=== PATIENT | male | born 1955 | race Caucasian/White ===

== ENCOUNTER 2020-06-22 07:30 | Observation (INO) ==
[~2020-06-22 07:30] MED LIST: Buffered Lidocaine 1% SYRIN 1 ml INTRADERM ONE; Dexamethasone IV 4 MG/ML VIAL 1 ml VIAL IV SLOW PU ONE; Lactated Ringers 1000 ml BAG 1,000 ML IV SCH
[2020-06-22] MEDS ORDERED: Lidocaine 2% PF 5 ML VIAL ONE (11:54)
[2020-06-22] MEDS ORDERED: fentaNYL 100 mcg/2 ml 50 MCG/ML VIAL ONE ×2 (11:54→16:28)
[2020-06-22] MEDS ORDERED: Propofol 10 MG/ML 20 ML BTL ONE (11:54)
[2020-06-22] MEDS ORDERED: Midazolam 2 mg/2 ml VIAL 1 mg/ml 2 ml VIAL (2 mg) ONE (11:54)
[2020-06-22] MEDS ORDERED: Dexamethasone IV 4 MG/ML VIAL 1 ml VIAL ONE ×2 (11:54→13:20)
[2020-06-22] MEDS ORDERED: Ondansetron 4 mg VIAL 2 MG/ML 2 ml VIAL ONE (11:54)
[2020-06-22] MEDS ORDERED: Bupivacaine 0.5% SDV PF 30ML VIAL ONE (13:01)
[2020-06-22] MEDS ORDERED: ceFAZolin 2 GM PREMIX 2 GM/50 ML BAG ONE (13:27)
[2020-06-22] MEDS ORDERED: ROPIVACAINE 5 MG/ML 30 ML BTL (0.5%) ONE (13:33)
[2020-06-22] MEDS ORDERED: Rocuronium 50 mg VIAL 10 mg/ml 5 ml VIAL (50 mg) ONE (13:44)
[2020-06-22] MEDS ORDERED: EPHEDrine (Pressors) 50 MG/ML VIAL ONE (14:18)
[2020-06-22] MEDS ORDERED: HYDROmorphone 1 MG/1 ML SYRINGE ONE ×3 (14:21→16:13)
[2020-06-22] MEDS ORDERED: diPHENhydraMINE IV 50 MG/ML 1 ml VIAL (BENADRYL) IV PRN (15:15)
[2020-06-22] MEDS ORDERED: Ondansetron ODT 4 mg TAB 4 MG TAB PO PRN (15:15)
[2020-06-22] MEDS ORDERED: oxyCODONE/Acetamin 5/325 mg TAB PO PRN (15:15)
[2020-06-22] MEDS ORDERED: Magnesium Hydroxide LIQ 30 ML UDC PO PRN (15:15)
[2020-06-22] MEDS ORDERED: diPHENhydraMINE 25 mg TAB PO PRN (15:15)
[2020-06-22] MEDS ORDERED: Ondansetron 4 mg VIAL 2 MG/ML 2 ml VIAL IV PRN ×2 (15:15→16:02)
[2020-06-22] MEDS ORDERED: Morphine 2 MG/ML SYRINGE IV PRN (15:15)
[2020-06-22] MEDS ORDERED: Lactulose 30 ml UDC PO PRN (15:15)
[2020-06-22] MEDS ORDERED: NICOTINE INH PRN (15:24)
[2020-06-22] MEDS ORDERED: Lactated Ringers 1000 ml BAG 1,000 ML IV SCH (16:00)
[2020-06-22] MEDS ORDERED: ceFAZolin 1 GM ADVAN 1 GM in NS 0.9% 50 ML 50 ML IVPB SCH (16:00)
[2020-06-22] MEDS ORDERED: Naloxone 0.4 mg VIAL 0.4 mg/ml 1 ml VIAL IV PRN (16:02)
[2020-06-22] MEDS: HYDROmorphone 1 MG/1 ML SYRINGE IV PRN ×2 (16:16→16:27)
[2020-06-22] MEDS ORDERED: oxyCODONE/Acetamin 5/325 mg TAB ONE (16:28)
[2020-06-22] MEDS: fentaNYL 100 mcg/2 ml 50 MCG/ML VIAL IV PRN ×2 (16:37→16:48)
[2020-06-22] MEDS ORDERED: PITAVASTATIN 4 MG PO SCH (21:00)
[2020-06-22] MEDS: oxyCODONE/Acetamin 5/325 mg TAB PO PRN (21:55)
[2020-06-22] MEDS: Magnesium Hydroxide LIQ 30 ML UDC PO SCH (21:56)
[2020-06-22] MEDS: ceFAZolin 1 GM ADVAN 1 GM in NS 0.9% 50 ML 50 ML IVPB SCH (21:59)
[2020-06-23] MEDS: ceFAZolin 1 GM ADVAN 1 GM in NS 0.9% 50 ML 50 ML IVPB SCH ×2 (06:04→13:27)
[2020-06-23 06:09] LABS: Hematocrit 33 % (42-52); Hemoglobin 10.8 g/dL (14.0-18.0); Mean Platelet Volume 7.6 fL (7.4-10.4); Platelet Count 177 10^3/uL (150-450)
[2020-06-23 06:31] LABS: BUN/Creatinine Ratio 17.8 (8-20); Calcium 8.8 mg/dL (8.6-10.3); EGFR African American 102.5 (>60); EGFR Non-African American 84.7 (>60); Potassium 4.1 mmol/L (3.5-5.0)
[2020-06-23] MEDS ORDERED: Vitamin THERAPEUTIC TAB PO SCH (09:00)
[2020-06-23] MEDS: Magnesium Hydroxide LIQ 30 ML UDC PO SCH (09:17)
[2020-06-23] MEDS: oxyCODONE/Acetamin 5/325 mg TAB PO PRN ×2 (10:13→13:52)
[2020-06-23 11:19] VITALS: BP 103/55
== END 2020-06-23 14:05 | disposition home or self-care (01) ==
LOC: INTOOBSV 12:43 → AA 12:43 → SSU 18:03
PROVIDERS: ADMIT Orthopaedic Surgery Adult Reconstructive Orthopaedic Surgery; ATTEND Orthopaedic Surgery Adult Reconstructive Orthopaedic Surgery

== ENCOUNTER 2020-11-13 06:59 | Inpatient (IN) ==
[2020-11-13] MEDS ORDERED: methylPREDNISolone 125 mg 2 ML VIAL IV ONE (07:35)
[2020-11-13 08:35] LABS: ABS Eosinophils 0.1 10^3/ul (0-0.6); ABS Monocytes 1.2 10^3/ul (0-0.8); ABS Neutrophils 11.5 10^3/ul (1.5-7.7); Eosinophil % 0.8 %; Hematocrit 40 % (42-52); Hemoglobin 13.5 g/dL (14.0-18.0); Lymphocyte % 7.4 %; Mean Corpuscular HGB Conc 34 g/dL (31-36); Mean Corpuscular Hemoglobin 30 pg (27-31); Mean Corpuscular Volume 88 fL (80-94); Mean Platelet Volume 8.1 fL (7.4-10.4); Platelet Count 198 10^3/uL (150-450); Red Blood Count 4.57 10^6 /uL (4.18-5.48); Red Cell Distribution Width 14 % (10-15); White Blood Count 13.8 10^3/uL (3.5-10.8)
[2020-11-13 08:56] LABS: Albumin 3.8 g/dL (3.2-5.2); Calcium 8.8 mg/dL (8.6-10.3); Total Bilirubin 0.5 mg/dL (0.2-1.0)
[2020-11-13 09:02] LABS: Albumin/Globulin Ratio 1.5 (1-3); BUN/Creatinine Ratio 17.7 (8-20); EGFR African American 119.1 (>60); EGFR Non-African American 98.4 (>60); Globulin 2.5 g/dL (2-4); Total Protein 6.3 g/dL (6.4-8.9)
[2020-11-13] MEDS ORDERED: NS 0.9% 1000 ml BAG 1,000 ML IV ONE (09:18)
[2020-11-13 09:23] LABS: Rapid Strep Molecular Negative (Negative)
[2020-11-13] MEDS ORDERED: Iohexol 300 (CONTRAST) 10 ML SDV IV ONE (09:28)
[2020-11-13] MEDS ORDERED: Piperacillin/Tazobac ADVAN 3.375 GM in NS 0.9% 100 ml BAG 100 ML IV ONE (10:37)
[2020-11-13] MEDS ORDERED: Ondansetron 4 mg VIAL 2 MG/ML 2 ml VIAL IV PRN (11:26)
[2020-11-13] MEDS ORDERED: Morphine 4 MG/ML VIAL (1 ml) IV PRN (11:28)
[2020-11-13] MEDS ORDERED: Zosyn per Pharmacy NOTE FOLLOW UP SCH (12:00)
[2020-11-13 14:29] LABS: TSH Ultra Thyroid Stim Horm 1.96 mcIU/mL (0.34-5.60)
[2020-11-13] MEDS: NS 0.9% 1000 ml BAG 1,000 ML IV SCH (14:30)
[2020-11-13] MEDS: ZOSYN 3.375 GM Q8H per EXTENDED INFUSION IV SCH (16:30)
[2020-11-13] MEDS: Dexamethasone IV 4 MG/ML VIAL 1 ml VIAL IV SLOW PU SCH (18:03)
[2020-11-14] MEDS: NS 0.9% 1000 ml BAG 1,000 ML IV SCH (00:29)
[2020-11-14] MEDS: Dexamethasone IV 4 MG/ML VIAL 1 ml VIAL IV SLOW PU SCH ×4 (00:31→17:53)
[2020-11-14] MEDS: ZOSYN 3.375 GM Q8H per EXTENDED INFUSION IV SCH ×3 (00:32→16:26)
[2020-11-14] MEDS ORDERED: Influenza VAC *QUAD* 2020-21* 0.5 ML SYRINGE IM ONE (09:00)
[2020-11-14] MEDS: Metoprolol Tartrate 5 mg VIAL 5 ml VIAL (1 mg/ml) IV SCH ×2 (11:46→15:26)
[2020-11-14] MEDS ORDERED: Lidocaine 4% TOPICAL 50 ML TOP.SOLN ONE (12:06)
[2020-11-14] MEDS ORDERED: Oxymetazoline 0.05% NASAL SPR 15 ML BTL ONE (12:06)
[2020-11-14] MEDS ORDERED: fentaNYL 100 mcg/2 ml 50 MCG/ML VIAL ONE ×3 (12:19→14:42)
[2020-11-14] MEDS ORDERED: Dexamethasone IV 4 MG/ML VIAL 1 ml VIAL ONE (12:19)
[2020-11-14] MEDS ORDERED: Ondansetron 4 mg VIAL 2 MG/ML 2 ml VIAL ONE ×2 (12:19→13:36)
[2020-11-14] MEDS ORDERED: Midazolam 5 mg/5 ml VIAL 1 mg/ml 5 ml VIAL (5 mg) ONE (12:19)
[2020-11-14] MEDS ORDERED: Lidocaine 2% PF 5 ML VIAL ONE ×2 (12:19→13:11)
[2020-11-14] MEDS ORDERED: Propofol 10 MG/ML 20 ML BTL ONE ×3 (12:19→13:11)
[2020-11-14] MEDS ORDERED: Succinylcholine 200 mg VIAL 20 mg/ml 10 ml VIAL (200 mg) ONE ×2 (12:19→13:11)
[2020-11-14] MEDS ORDERED: Famotidine IV 10 MG/ML 2 ml VIAL (20 mg) IV ONE (12:25)
[2020-11-14] MEDS ORDERED: Famotidine IV 10 MG/ML 2 ml VIAL (20 mg) ONE (12:28)
[2020-11-14] MEDS ORDERED: Lactated Ringers 1000 ml BAG 1,000 ML IV SCH (13:00)
[2020-11-14] MEDS ORDERED: Midazolam 2 mg/2 ml VIAL 1 mg/ml 2 ml VIAL (2 mg) ONE (13:12)
[2020-11-14] MEDS ORDERED: Rocuronium 50 mg VIAL 10 mg/ml 5 ml VIAL (50 mg) ONE (13:28)
[2020-11-14] MEDS ORDERED: Naloxone 0.4 mg VIAL 0.4 mg/ml 1 ml VIAL IV PRN (13:46)
[2020-11-14] MEDS ORDERED: DiMENhydriNATE IV 50 mg/ml 1 ml VIAL IV PUSH PRN (13:46)
[2020-11-14] MEDS ORDERED: Labetalol IV 5 MG/ML 20 ml VIAL ONE (13:47)
[2020-11-14] MEDS: fentaNYL 100 mcg/2 ml 50 MCG/ML VIAL IV PRN ×4 (14:44→15:41)
[2020-11-14] MEDS ORDERED: Metoprolol Tartrate 5 mg VIAL 5 ml VIAL (1 mg/ml) ONE (15:26)
[2020-11-14] MEDS ORDERED: hydrALAZINE 20 mg/ml 1 ML Vial IV IV SLOW PU PRN (16:14)
[2020-11-14] MEDS ORDERED: oxyCODONE/Acetamin 5/325 mg TAB PO PRN (20:29)
[2020-11-14] MEDS: oxyCODONE/Acetamin 5/325 mg TAB PO PRN (21:57)
[2020-11-15] MEDS: ZOSYN 3.375 GM Q8H per EXTENDED INFUSION IV SCH ×2 (00:38→08:30)
[2020-11-15] MEDS: Dexamethasone IV 4 MG/ML VIAL 1 ml VIAL IV SLOW PU SCH ×2 (00:40→05:12)
[2020-11-15] MEDS: oxyCODONE/Acetamin 5/325 mg TAB PO PRN (05:11)
[2020-11-15 05:29] LABS: ABS Lymphocytes 0.9 10^3/ul (1.0-4.8); ABS Monocytes 0.4 10^3/ul (0-0.8); Hematocrit 36 % (42-52); Hemoglobin 11.7 g/dL (14.0-18.0); Mean Corpuscular HGB Conc 33 g/dL (31-36); Mean Corpuscular Hemoglobin 29 pg (27-31); Mean Corpuscular Volume 89 fL (80-94); Mean Platelet Volume 7.9 fL (7.4-10.4); Nucleated Red Blood Cells % 0.1; Platelet Count 195 10^3/uL (150-450); Red Blood Count 3.99 10^6 /uL (4.18-5.48); Red Cell Distribution Width 14 % (10-15); White Blood Count 14.4 10^3/uL (3.5-10.8)
[2020-11-15 07:28] VITALS: BP 117/67
== END 2020-11-15 11:50 | disposition home or self-care (01) | DRG 145 ==
LOC: ED 06:59 → SSU 11:17
PROVIDERS: ADMIT Internal Medicine; ATTEND Hospitalist

== ENCOUNTER 2022-07-28 08:37 | Observation (INO) ==
[~2022-07-28 08:37] MED LIST changes: -Dexamethasone IV 4 MG/ML VIAL 1 ml VIAL IV SLOW PU ONE; +HYDROcodone/ACETAMIN 5/325 mg TAB PO PRN; +Metoclopramide 5 MG/ML VIAL (10 mg) IV PRN; +Naloxone 0.4 mg VIAL 0.4 mg/ml 1 ml VIAL IV PRN; +Ondansetron 4 mg VIAL 2 MG/ML 2 ml VIAL IV PRN
[2022-07-28] MEDS ORDERED: ceFAZolin 2 GM PREMIX 2 GM/50 ML BAG ONE (09:15)
[2022-07-28] MEDS ORDERED: Ropivacaine 5 MG/ML 20 ML VIAL 0.5% (100 MG) ONE (10:42)
[2022-07-28] MEDS ORDERED: Lidocaine 2% PF 5 ML VIAL ONE (11:04)
[2022-07-28] MEDS ORDERED: fentaNYL 250 mcg/5 ml 50 MCG/ML 5 ml VIAL (250 MCG) ONE (11:04)
[2022-07-28] MEDS ORDERED: Midazolam 2 mg/2 ml VIAL 1 mg/ml 2 ml VIAL (2 mg) ONE (11:04)
[2022-07-28] MEDS ORDERED: Propofol 10 MG/ML 20 ML BTL ONE (11:04)
[2022-07-28] MEDS ORDERED: HYDROmorphone 0.5 MG/0.5 ML SYRINGE ONE (11:40)
[2022-07-28] MEDS ORDERED: Ondansetron 4 mg VIAL 2 MG/ML 2 ml VIAL ONE (11:45)
[2022-07-28] MEDS ORDERED: Dexamethasone IV 4 MG/ML VIAL 1 ml VIAL ONE (11:45)
[2022-07-28] MEDS ORDERED: Ondansetron ODT 4 mg TAB 4 MG TAB PO PRN (12:47)
[2022-07-28] MEDS ORDERED: Lactulose 30 ml UDC PO PRN (12:47)
[2022-07-28] MEDS ORDERED: Morphine 2 MG/ML SYRINGE IV PRN (12:47)
[2022-07-28] MEDS ORDERED: Ondansetron 4 mg VIAL 2 MG/ML 2 ml VIAL IV PRN (12:47)
[2022-07-28] MEDS ORDERED: Magnesium Hydroxide LIQ 30 ML UDC PO PRN (12:47)
[2022-07-28] MEDS ORDERED: Phenylephrine 40 mcg/mL 10mL (400mcg) SYRINGE ONE (12:55)
[2022-07-28] MEDS ORDERED: fentaNYL 100 mcg/2 ml 50 MCG/ML VIAL ONE (14:24)
[2022-07-28] MEDS: fentaNYL 100 mcg/2 ml 50 MCG/ML VIAL IV PRN ×4 (14:30→15:01)
[2022-07-28] MEDS ORDERED: HYDROcodone/ACETAMIN 5/325 mg TAB ONE (14:34)
[2022-07-28] MEDS: Lactated Ringers 1000 ml BAG 1,000 ML IV SCH (17:18)
[2022-07-28] MEDS: ceFAZolin 1 GM ADVAN 1 GM in NS 0.9% 50 ML 50 ML IVPB SCH (19:56)
[2022-07-28] MEDS ORDERED: PITAVASTATIN 4 MG PO SCH (21:00)
[2022-07-28] MEDS: Magnesium Hydroxide LIQ 30 ML UDC PO SCH (21:19)
[2022-07-29] MEDS: Lactated Ringers 1000 ml BAG 1,000 ML IV SCH (02:37)
[2022-07-29] MEDS: ceFAZolin 1 GM ADVAN 1 GM in NS 0.9% 50 ML 50 ML IVPB SCH ×2 (04:16→12:10)
[2022-07-29 06:24] LABS: Hematocrit 32 % (42-52); Hemoglobin 10.4 g/dL (14.0-18.0); Mean Platelet Volume 8.2 fL (7.4-10.4); Platelet Count 180 10^3/uL (150-450)
[2022-07-29 06:56] LABS: Calcium 8.5 mg/dL (8.6-10.3); Potassium 4.1 mmol/L (3.5-5.0); eGFR CKD-EPI 77.8 (>60)
[2022-07-29] MEDS: Magnesium Hydroxide LIQ 30 ML UDC PO SCH (07:52)
[2022-07-29] MEDS ORDERED: Vitamin THERAPEUTIC TAB PO SCH (09:00)
[2022-07-29 12:46] VITALS: BP 133/66
== END 2022-07-29 13:05 | disposition home or self-care (01) ==
LOC: AA 08:37 → INTOOBSV 08:37 → SSU 16:54
PROVIDERS: ADMIT Orthopaedic Surgery Adult Reconstructive Orthopaedic Surgery; ATTEND Orthopaedic Surgery Adult Reconstructive Orthopaedic Surgery